=== PATIENT | female | born 1965 | race African-American/Black ===

== ENCOUNTER 2017-12-10 10:58 | Emergency (ER) | payer MEDICAID ==
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
--- NOTE | 2017-12-10 11:36 | CPEKG ---
Test Reason : OPEN Blood Pressure : / mmHG Vent. Rate : 073 BPM Atrial Rate : 082 BPM P-R Int : 213 ms QRS Dur : 091 ms QT Int : 440 ms P-R-T Axes : 008 -15 151 degrees QTc Int : 485 ms Sinus rhythm Atrial premature complexes Prolonged NE interval LVH with secondary repolarization abnormality Confirmed by Alber Wheeler ([id number]) on 12/10/2017 11:35:50 AM Referred By: Confirmed By:Alber Wheeler
[2017-12-10 13:21] LABS: PLATELET COUNT 342 10^3/uL (150-400)
[2017-12-10 15:15] VITALS: BP 172/99
--- NOTE | 2017-12-10 16:52 | ASMTCMCOM ---
CM Note CM Note Notes: Patient presents to the ER today with c/o CP and back pain. Chart reviewed from recent IP discharge on 12/02/17. I met with patient to evaluate for resources and potential follow up/establishment with a PCP. When asked where patient is staying, she does not share. I asked her if she has been staying in [place]? At the long term? [place]? Patient states she is "staying around". Patient was evidently seen at [facility] yesterday but does not engage in discussing details of this. I encouraged patient to seek long term, primary care, and stability and attempted to evaluate for resource referrals but patient appears disinterested at this time Date Signed: 12/10/2017 04:51 PM Electronically Signed By:Germaine Coffman RN
== END 2017-12-10 15:15 | disposition home or self-care (01) ==
LOC: EDUNIT#
DX: R07.9 Chest pain, unspecified (principal); M54.5 Low back pain; Z59.0 Homelessness

== ENCOUNTER 2017-12-13 19:00 | Emergency (ER) | payer MEDICAID ==
--- NOTE | 2017-12-13 19:06 | EDPHY ---
H & P Time Seen by Provider: 12/13/17 19:06 - Medical/Surgical History Hx Asthma: No Hx Chronic Respiratory Disease: No Hx Diabetes: No Hx Cardiac Disease: Yes Hx Renal Disease: No Hx Cirrhosis: No Hx Alcoholism: No Hx HIV/AIDS: No Hx Splenectomy or Spleen Trauma: No Other PMH: HTN, SD, CVA, chronic chest and back pain - Social History Smoking Status: Heavy smoker Allergies/Adverse Reactions: Penicillins Allergy (Verified 12/01/17 19:57) Home Medications: Medication Instructions Recorded Apixaban [Eliquis] 5 mg PO BID 12/01/17 Aspirin [Aspirin 81mg (*)] 81 mg PO DAILY 12/01/17 Carisoprodol [SOMA] 350 mg PO DAILY PRN 12/01/17 Cyclobenzaprine [Flexeril 10 MG 10 mg PO BID PRN 12/01/17 (*)] HYDROmorphone HCL [Dilaudid 2 mg 2 mg PO Q3 PRN MDD 6 TABS 12/01/17 (*)] Nitroglycerin [Nitrostat] 0.4 mg SL Q5M PRN 12/01/17 Ondansetron [Ondansetron Odt] 8 mg PO ONCE PRN 12/01/17 morphINE IR [morphINE IR 15 mg (*)] 15 mg PO Q3 PRN MDD 6 TABLETS 12/01/17 Hydrochlorothiazide [HCTZ (*)] 25 mg PO DAILY #30 cap 12/02/17 Metoprolol Tartrate [Lopressor 50 50 mg PO BID #60 tab 12/02/17 mg (*)] Apixaban [Eliquis] 5 mg PO BID #14 tab 12/10/17 Medical Decision Making ED Course/Re-evaluation: CHIEF COMPLAINT: HISTORY OF PRESENT ILLNESS: must have 4 elements: Location, Quality, Severity , Duration, Timing, Context, Modifying Factors, Associated Signs and Symptoms REVIEW OF SYSTEMS: A 10 point review of systems was performed and is negative with the exception of the elements mentioned in the history of present illness. PHYSICAL EXAM: HR, BP, O2 Sat, RR. Temp noted General Appearance: Alert, well hydrated, appropriate, and non-toxic appearing. Head: Atraumatic without scalp tenderness or obvious injury Eyes: Pupils equal, round, reactive to light and accommodation, EOMI, no trauma , no injection. Ears: Clear bilaterally, no perforation, normal landmarks Nose: Atraumatic, no rhinorrhea, clear. Throat: There is no erythema or exudates, no lesions, normal tonsils, mucus membranes moist. Neck: Supple, 2+ carotid upstroke, nontender, no lymphadenopathy. Respiratory: No retractions, no distress, no wheezes, and no accessory muscle use. Lungs are clear to auscultation bilaterally. Cardiovascular: Regular rate and rhythm, no murmurs, rubs, or gallops. Bilateral carotid, radial, dorsalis pedis, and posterior tibial pulses intact. Good capillary refill all extremities. Gastrointestinal: Abdomen is soft, nontender, non-distended, no masses, no rebound, no guarding, no peritoneal signs. Musculoskeletal: Normal active ROM of all extremities, atraumatic. Neurological: Alert, appropriate, and interactive. The patient has normal DTRs and non-focal cranial nerves, motor, sensory, and cerebellar exam. Skin: No rashes, good turgor, no nodules on palpation. Past medical history: Past surgical history: Family history: Social history: DIAGNOSTICS/PROCEDURES/CRITICAL CARE TIME: DIFFERENTIAL DIAGNOSIS: MEDICAL DECISION MAKING: Departure - Departure Referrals: Patient,NotPresent [Primary Care Provider] - As per Instructions
== END 2017-12-13 19:07 | disposition left against medical advice (07) ==
LOC: EDUNIT#
DX: Z53.21 Procedure and treatment not carried out due to patient leaving prior to being seen by health care provider (principal)

== ENCOUNTER 2017-12-28 18:10 | Observation (INO) | payer MEDICAID ==
--- NOTE | 2017-12-28 20:27 | EDPHY ---
H & P Time Seen by Provider: 12/28/17 19:47 HPI/ROS: Chief complaint. Chest pain HPI. Patient is a 52-year-old female presents emergency department with continuous chest pain for 1 week. It is right-sided and described as pressure with radiation of right arm. Occasional shortness of breath. Symptoms are somewhat worse with walking. She has had a cough. Fever last week. She has pain in her legs and pain in her back and asks me multiple times during the initial discussion for Dilaudid for her back pain. She says that she has been taking her Eliquis as prescribed. Patient was seen in our department on December 01 for chest pain and then she left AMA from the hospital. Review of records shows that she left AMA from [facility] the day before. She was seen in the emergency department on December 10 for chest pain. She at that time said she had been at [facility] the previous night for chest pain. [facility] She has had aspirin today. ROS Constitutional. no fever/chills, no weakness Eyes. no problems with vision ENT. no sore throat, no nasal drainage Cardiovascular. Right-sided chest pain Respiratory. Shortness of breath and cough Abdominal. no abdominal pain, no nausea/vomiting, no diarrhea . no problems urinating MS. Chronic back pain. Leg pain. Skin. no rash Lymph. no swollen glands Neuro. no headache, no dizziness, no difficulty walking or with speech Past Medical/Surgical History: Past medical history [place] 2001, CVA, PE on Eliquis, hypertension, chronic back pain Social History: Single, daily smoker, no alcohol Smoking Status: Heavy smoker Physical Exam: General Appearance: Alert well-developed female mild distress vital signs are stable Eyes: Pupils equal and round no pallor or injection. ENT, Mouth: Mucous membranes are moist. Respiratory: There are no retractions, lungs are clear to auscultation. Cardiovascular: Regular rate and rhythm. Gastrointestinal: Abdomen is soft and nontender, no masses, bowel sounds normal. Neurological: Awake and alert, sensory and motor exams grossly normal. Skin: Warm and dry, no rashes. Musculoskeletal: Neck is supple nontender. Extremities symmetrical, full range of motion. Psychiatric: Patient is oriented X 3, there is no agitation. Constitutional: Initial Vital Signs Temperature (C) 36.7 C 12/28/17 18:28 Heart Rate 99 09/10/18 18:28 Respiratory Rate 18 12/28/17 18:28 Blood Pressure 102/82 H 12/28/17 18:28 O2 Sat (%) 96 12/28/17 18:28 O2 Delivery Mode Room Air Allergies/Adverse Reactions: Penicillins Allergy (Verified 12/28/17 18:27) Home Medications: Medication Instructions Recorded Apixaban [Eliquis] 5 mg PO BID 12/01/17 Aspirin [Aspirin 81mg (*)] 81 mg PO DAILY 12/01/17 Carisoprodol [SOMA] 350 mg PO DAILY PRN 12/01/17 Cyclobenzaprine [Flexeril 10 MG 10 mg PO BID PRN 12/01/17 (*)] HYDROmorphone HCL [Dilaudid 2 mg 2 mg PO Q3 PRN MDD 6 TABS 12/01/17 (*)] Nitroglycerin [Nitrostat] 0.4 mg SL Q5M PRN 12/01/17 Ondansetron [Ondansetron Odt] 8 mg PO ONCE PRN 12/01/17 morphINE IR [morphINE IR 15 mg (*)] 15 mg PO Q3 PRN MDD 6 TABLETS 12/01/17 Hydrochlorothiazide [HCTZ (*)] 25 mg PO DAILY #30 cap 12/02/17 Metoprolol Tartrate [Lopressor 50 50 mg PO BID #60 tab 12/02/17 mg (*)] Apixaban [Eliquis] 5 mg PO BID #14 tab 12/10/17 Medical Decision Making - Diagnostics EKG Interpretation: EKG interpreted by me shows sinus tachycardia. Normal interval. Left axis deviation. LVH. No significant ST elevation or depression. Lateral T-wave changes that may be repolarization. Also T-wave inversion in leads 1 and aVL. Her EKG is unchanged from previous EKG 12/01/2017 Imaging Results: Imaging Impressions Chest X-Ray 12/28/17 20:29 Impression: Mild bronchitis. Other chronic findings, as above. Chest x-ray interpreted by me shows LVH in possibly mild bronchitis. No pneumonia Procedures: IV normal saline, monitor ED Course/Re-evaluation: Re-evaluation at 9:50 p.m.--patient is sleepy but arousable. She tells me she continues to have chest discomfort She and I discussed labs and treatment plan and recommendation for admission. She expresses understanding and agreement I consulted discussed case Dr. Mckenzie, hospitalist who agrees to the admission Differential Diagnosis: Patient's heart score shows a 1 for moderately suspicious history, a 1 for nonspecific repolarization disturbance, a 1 for age and a 1 for risk factors as she has had previous [place]. Total heart risk score is 4. Her initial troponin is normal so she gets a 0. - Data Points Laboratory Results: Laboratory Results 12/28/17 20:28 12/28/17 20:28 12/28/17 12/28/17 12/28/17 20:31 20:28 20:28 WBC RBC Hgb Hct MCV MCH MCHC RDW Plt Count MPV Neut % (Auto) Lymph % (Auto) [place] % (Auto) Eos % (Auto) Baso % (Auto) Nucleat RBC Rel Count Absolute Neuts (auto) Absolute Lymphs (auto) Absolute Monos (auto) Absolute Eos (auto) Absolute Basos (auto) Absolute Nucleated RBC Immature Gran % Immature Gran # PT 13.6 SEC SEC (12.0-15.0) INR 1.02 (0.83-1.16) APTT 22.0 SEC L SEC (23.0-38.0) D-Dimer 0.49 ug/mLFEU ug/mLFEU (0.00-0.50) Sodium 137 mEq/L mEq/L (135-145) Potassium 4.1 mEq/L mEq/L (3.3-5.0) Chloride 105 mEq/L mEq/L (97-110) Carbon Dioxide 26 mEq/l mEq/l (22-31) Anion Gap 6 mEq/L L mEq/L (8-16) BUN 14 mg/dL mg/dL (7-23) Creatinine 0.8 mg/dL mg/dL (0.6-1.0) Estimated GFR > 60 Glucose 99 mg/dL mg/dL (70-100) Calcium 9.4 mg/dL mg/dL (8.5-10.4) POC Troponin I 0.03 ng/mL ng/mL (0.00-0.08) 12/28/17 20:28 WBC 6.85 10^3/uL 10^3/uL (3.80-9.50) RBC 4.23 10^6/uL 10^6/uL (4.18-5.33) Hgb 11.5 g/dL L g/dL (12.6-16.3) Hct 35.8 % L % (38.0-47.0) MCV 84.6 fL fL (81.5-99.8) MCH 27.2 pg L pg (27.9-34.1) MCHC 32.1 g/dL L g/dL (32.4-36.7) RDW 15.9 % H % (11.5-15.2) Plt Count 347 10^3/uL 10^3/uL (150-400) MPV 10.0 fL fL (8.7-11.7) Neut % (Auto) 63.0 % % (39.3-74.2) Lymph % (Auto) 25.4 % % (15.0-45.0) [place] % (Auto) 9.1 % % (4.5-13.0) Eos % (Auto) 1.8 % % (0.6-7.6) Baso % (Auto) 0.6 % % (0.3-1.7) Nucleat RBC Rel Count 0.0 % % (0.0-0.2) Absolute Neuts (auto) 4.32 10^3/uL 10^3/uL (1.70-6.50) Absolute Lymphs (auto) 1.74 10^3/uL 10^3/uL (1.00-3.00) Absolute Monos (auto) 0.62 10^3/uL 10^3/uL (0.30-0.80) Absolute Eos (auto) 0.12 10^3/uL 10^3/uL (0.03-0.40) Absolute Basos (auto) 0.04 10^3/uL 10^3/uL (0.02-0.10) Absolute Nucleated RBC 0.00 10^3/uL 10^3/uL (0-0.01) Immature Gran % 0.1 % % (0.0-1.1) Immature Gran # 0.01 10^3/uL 10^3/uL (0.00-0.10) PT INR APTT D-Dimer Sodium Potassium Chloride Carbon Dioxide Anion Gap BUN Creatinine Estimated GFR Glucose Calcium POC Troponin I Point of Care Test Results: Chemistry 12/28/17 20:31 POC Troponin I 0.03 ng/mL ng/mL (0.00-0.08) Departure - Departure Disposition: [facility] Acute Clinical Impression: Chest pain Qualifiers: Chest pain type: unspecified Qualified Code(s): R07.9 - Chest pain, unspecified Condition: Fair Referrals: NONE *PRIMARY CARE P,. [Primary Care Provider] - As per Instructions
[2017-12-28 20:55] LABS: PLATELET COUNT 347 10^3/uL (150-400)
[2017-12-28 21:01] LABS: INR 1.02 (0.83-1.16); PROTIME(PATIENT) 13.6 SEC (12.0-15.0)
[2017-12-28] MEDS ORDERED: ONDANSETRON 4 MG/2 ML VIAL IVP PRN (23:08)
[2017-12-28] MEDS ORDERED: ONDANSETRON DISINTEGRATING 4 MG TAB PO PRN (23:08)
[2017-12-28] MEDS ORDERED: ACETAMINOPHEN 325 MG TAB PO PRN (23:08)
--- NOTE | 2017-12-28 23:35 | CPEKG ---
Test Reason : OPEN Blood Pressure : / mmHG Vent. Rate : 101 BPM Atrial Rate : 102 BPM P-R Int : 187 ms QRS Dur : 094 ms QT Int : 382 ms P-R-T Axes : 032 -09 165 degrees QTc Int : 496 ms Sinus tachycardia Atrial premature complexes LVH with secondary repolarization abnormality Borderline prolonged QT interval Confirmed by Robbie Garcia ([id number]) on 12/28/2017 11:34:38 PM Referred By: Confirmed By:Robbie Garcia
[2017-12-29] MEDS ORDERED: NITROGLYCERIN 0.4 MG BTL SL PRN ×2 (00:10→11:34)
[2017-12-29] MEDS: IBUPROFEN 200 MG TAB PO PRN ×2 (00:29→09:53)
[2017-12-29] MEDS: ACETAMINOPHEN 500 MG TAB PO PRN ×2 (00:29→09:54)
--- NOTE | 2017-12-29 01:38 | PDGENHP ---
History and Physical - Chief Complaint Chest pain - History of Present Illness 52 yo F w/ hx of CAD, HTN, and PE presents with chest pain and back pain. Patient tells me she experienced mid-sternal chest pain today with radiation to her face, neck, and shoulder. This is typical pain for her, which she has been experiencing often over the last few weeks to months. In terms of her back pain , she has been having chronic lower back pain for a long time. She denies change in character or red flag symptoms. A review of her records reveals a very complicated history. Today's visit is the 4th hospital she has visited in the last week with the same complaints. She visited [facility] ED and was discharged. She then was admitted at [facility] and [facility] as well. She left AMA from both [place] and [facility]. She underwent a nuclear stress test at [place] but per their notes she left AMA in the middle of it. It is unclear if this was completed as the results are not available in [facility]. She has left AMA from [facility] in the past as well under similar circumstances. Her evaluation today is fairly unremarkable in that she has a stable ECG and negative troponin. Her BP is elevated currently but consistent with her prior values. She denies ongoing chest pain. When asked why she has visited so many hospitals, she tells me someone has stolen her ID and has committed identity theft against her. The presumption at the other facilities she has visited is opiate seeking behavior. This has been documented here as well in the past. During our conversation she did mention Dilaudid but she did not forcibly request it. She was also not upset when I told her I would not be giving her any opiates while here. She continues to refuse any additional stress testing or cardiac catheterizations. Case discussed with ED physician Dr. Garcia. Records reviewed in EMR and [facility]. History Information - Allergies/Home Medication List Allergies/Adverse Reactions: Penicillins Allergy (Verified 12/28/17 18:27) Home Medications: Apixaban [Eliquis] 5 mg PO BID 12/01/17 [Last Taken 12/01/17] Aspirin [Aspirin 81mg (*)] 81 mg PO DAILY 12/01/17 [Last Taken 12/01/17] Carisoprodol [SOMA] 350 mg PO DAILY PRN 12/01/17 [Last Taken 11/29/17] Cyclobenzaprine [Flexeril 10 MG (*)] 10 mg PO BID PRN 12/01/17 [Last Taken 11/29] HYDROmorphone HCL [Dilaudid 2 mg (*)] 2 mg PO Q3 PRN MDD 6 TABS 12/01/17 [Last Taken 11/29/17] Nitroglycerin [Nitrostat] 0.4 mg SL Q5M PRN 12/01/17 [Last Taken 12/01/17] Ondansetron [Ondansetron Odt] 8 mg PO ONCE PRN 12/01/17 [Last Taken 11/29/17] morphINE IR [morphINE IR 15 mg (*)] 15 mg PO Q3 PRN MDD 6 TABLETS 12/01/17 [ Last Taken 11/29/17] I have personally reviewed and updated: family history, medical history - Past Medical History coronary artery disease, hypertension, pulmonary embolism - Surgical History Additional surgical history: Left foot surgery. L eye surgery - Family History Additional family history: Denies family history of heart disease - Social History Smoking Status: Heavy smoker Review of Systems Review of Systems: ROS: 10pt was reviewed & negative except for what was stated in HPI & below Physical Exam Physical Exam: Temp Pulse Resp BP Pulse Ox 37.3 C 88 15 180/115 H 95 12/29/17 00:00 12/29/17 00:00 12/29/17 00:00 12/29/17 00:00 12/29/17 00:00 Constitutional: no apparent distress, obese Eyes: PERRL, EOMI Ears, Nose, Mouth, Throat: moist mucous membranes, no oral mucosal ulcers Cardiovascular: regular rate and rhythym, no murmur, rub, or gallop Respiratory: no respiratory distress, clear to auscultation Gastrointestinal: normoactive bowel sounds, soft, non-tender abdomen Skin: warm, normal color Musculoskeletal: full muscle strength, no muscle tenderness Neurologic: AAOx3, CN II-XII Intact Psychiatric: interacting appropriately, not anxious Lab Data & Imaging Review 12/28/17 20:28 12/28/17 20:28 WBC 6.85 10^3/uL (3.80-9.50) 12/28/17 20:28 RBC 4.23 10^6/uL (4.18-5.33) 12/28/17 20: Hgb 11.5 g/dL (12.6-16.3) L 12/28/17 20: Hct 35.8 % (38.0-47.0) L 12/28/17 20: MCV 84.6 fL (81.5-99.8) 12/28/17 20: MCH 27.2 pg (27.9-34.1) L 12/28/17: MCHC 32.1 g/dL (32.4-36.7) L 12/28/17: RDW 15.9 % (11.5-15.2) H 12/28/17: Plt Count 347 10^3/uL (150-400) 12/28/17 MPV 10.0 fL (8.7-11.7) 12/28/17: Neut % (Auto) 63.0 % (39.3-74.2) 12/28/17: Lymph % (Auto) 25.4 % (15.0-45.0) 12/28/17: [place] % (Auto) 9.1 % (4.5-13.0) 12/28/17: Eos % (Auto) 1.8 % (0.6-7.6) 12/28/17: Baso % (Auto) 0.6 % (0.3-1.7) 12/28/17: Nucleat RBC Rel Count 0.0 % (0.0-0.2) 12/28/17: Absolute Neuts (auto) 4.32 10^3/uL (1.70-6.50) 12/28/17: Absolute Lymphs (auto) 1.74 10^3/uL (1.00-3.00) 12/28/17: Absolute Monos (auto) 0.62 10^3/uL (0.30-0.80) 12/28/17 20: Absolute Eos (auto) 0.12 10^3/uL (0.03-0.40) 12/28/17 20: Absolute Basos (auto) 0.04 10^3/uL (0.02-0.10) 12/28/17 20: Absolute Nucleated RBC 0.00 10^3/uL (0-0.01) 12/28/17 20: Immature Gran % 0.1 % (0.0-1.1) 12/28/17 20: Immature Gran # 0.01 10^3/uL (0.00-0.10) 12/28/17 20: PT 13.6 SEC (12.0-15.0) 12/28/17 20: INR 1.02 (0.83-1.16) 12/28/17 20: APTT 22.0 SEC (23.0-38.0) L 12/28/17 20: D-Dimer 0.49 ug/mLFEU (0.00-0.50) 12/28/17 20: Sodium 137 mEq/L (135-145) 12/28/17 20: Potassium 4.1 mEq/L (3.3-5.0) 12/28/17 20: Chloride 105 mEq/L (97-110) 12/28/17 20: Carbon Dioxide 26 mEq/l (22-31) 12/28/17 20: Anion Gap 6 mEq/L (8-16) L 12/28/17 20: BUN 14 mg/dL (7-23) 12/28/17 20: Creatinine 0.8 mg/dL (0.6-1.0) 12/28/17 20: Estimated GFR > 60 12/28/17 20: Glucose 99 mg/dL (70-100) 12/28/17 20: Calcium 9.4 mg/dL (8.5-10.4) 12/28/17 20: POC Troponin I 0.03 ng/mL (0.00-0.08) 12/28/17 20:31 Imaging Review: Imaging Impressions Chest X-Ray 12/28/17 20:29 Impression: Mild bronchitis. Other chronic findings, as above. Visualized and Interpreted EKG results: Yes EKG Interpretation: Positive for: normal sinsus rhythm, T waves inversion ( Lateral leads) Assessment & Plan Assessment: 52 yo F w/ hx of CAD, HTN, and PE presents with chest pain. Plan: 1. Chest pain - While her symptoms do seem anginal in nature, patient is currently refusing further testing including stress test or cardiac catheterization. She underwent a nuclear perfusion study on 12/23 at [facility]. It is unclear if this was completed prior to her leaving [place]. Her work-up thus far is reassuring including ECG (personally interpreted) with stable, lateral TWI's and negative troponin. It is possible her elevated BP and LV strain are contributing to her chest discomfort. - Admit to PCU for observation - Monitor on telemetry, trend cardiac enzymes - Patient refusing further testing - Could attempt to obtain stress test results from [place] - Improved BP control and addition of CCB could be helpful conservative strategies for managing her angina 2. Hx CAD - She suffered an SC in 2001 but no stents were placed at that time. - Acute management as above - Continue home medications pending reconciliation 3. Hx PE - On apixaban as an outpatient 4. HTN - Poorly controlled with unclear compliance. It is likely that improved control of this will help her chest pain symptoms. - Continue home medications pending reconciliation, titrate as indicated 5. Chronic back pain - Denies red flag symptoms; MRI performed 12/25 at [facility] revealed only mild degenerative changes in the lumbar spine. - Pain control with APAP and NSAIDs - I discussed with patient that we will not be prescribing opiates 6. Homelessness - I believe this is driving her unusual behavior of visiting numerous hospitals essentially continuously. [facility] is the 4th hospital she has visited this week alone. - Case management consult placed Diet - Regular (since patient refuses further risk stratification) Code - Full Ppx - apixaban Dispo - Admit under observation status
[2017-12-29] MEDS ORDERED: hydrALAZINE 20 MG/ML VIAL IVP PRN (11:37)
[2017-12-29] MEDS ORDERED: ONDANSETRON DISINTEGRATING 4 MG TAB PO PRN (11:53)
[2017-12-29 13:35] LABS: PLATELET COUNT 315 10^3/uL (150-400)
[2017-12-29 14:24] VITALS: BP 165/123
--- NOTE | 2017-12-29 14:36 | ASMTCMCOM ---
CM Note CM Note Notes: 12/29/2017 Case Management Note Discussed pt during rounds. Admitted for c/o chest pain. Pt has history of frequent visits to local EDs including [facility] and leaving hospitals AMA. Recent stay at [facility] on 12/01 pt left AMA. Met w/pt and notified of appointment tomorrow 12/30/2017 at [facility] at [address] Marion Maria at [address] [place] [address]. Pt states a friend Toyin Washington is picking her up between 6 - [address] [facility]. Pt refused info on local homeless senior living process. Pt has no plans to return to [place] at this time. Case Management d/c poc: independent with follow up as above. Date Signed: 12/29/2017 02:35 PM Electronically Signed By:Chanel Hermosillo RN
--- NOTE | 2017-12-29 16:55 | ASDISCHSUM ---
Discharge Information Plan Status:Homeless/Fpc Medically Cleared to Leave:12/29/2017 Discharge Date:12/29/2017 CM D/C Disposition:Home, Routine, Self-Care ADT D/C Disposition:Home, Routine, Self-Care Projected Discharge Date:12/29/2017 Transportation at D/C:Self Discharge Delay Reason: Follow-Up Date:12/29/2017 Discharge Slot: Final Diagnosis: Placement Information Patient Contact Information Contact Name:VINH Relationship:Daughter Address: Work Phone: City: [facility] Phone: State/Zip Code: Email: Financial Information Financial Class:Medicaid Primary Plan Desc:MEDICAID HEALTH FIRST PUFFER TENDER Primary Plan Number:[id number] Secondary Plan Desc: Secondary Plan Number: Assessment Information LACE LACE Length of stay for Answers: Less than 1 day current admission Acuity / Level of Answers: No Care: Did the patient have an inpatient admission? Comorbidities - select Answers: Cerebrovascular disease all that apply (CVA, TIA, aneurysms, vasc ular dementia) Coronary Artery Disease Opioid dependence / Chronic pain Previous myocardial infarction Other Notes: HTN; PE # of Emergency department Answers: 3-4 visits in the last 6 months Social determinants Answers: History of substance abuse (ETOH, street drugs, prescription drugs, etc.) Score: 15 Date Signed: 12/29/2017 04:54 PM Electronically Signed By:Chanel Hermosillo RN [facility] CM Progress Note CM Note CM Note Notes: 12/29/2017 Case Management Note Discussed pt during rounds. Admitted for c/o chest pain. Pt has history of frequent visits to local EDs including [facility] and [facility] hospitals AMA. Recent stay at [facility] on 12/01 pt left AMA. Met w/pt and notified of appointment tomorrow 12/30/2017 at [facility] at [address] Marion Maria at [address] [place] [address]. Pt states a friend Toyin [place] [facility] Pt refused info on local homeless half-way process. Pt has no plans to return to [place] at this time. Case Management d/c poc: independent with follow up as above. Date Signed: 12/29/2017 02:35 PM Electronically Signed By:Chanel Hermosillo RN Intervention Information
[2017-12-29] MEDS ORDERED: APIXABAN 5 MG TAB PO SCH (17:00)
--- NOTE | 2017-12-29 18:45 | GDS ---
DISCHARGE DIAGNOSES: 1. Chest and back pain, subacute to chronic. 2. History of pulmonary embolus, on Eliquis. 3. Questionable narcotic-seeking behavior. 4. Morbid obesity. 5. Uncontrolled hypertension. 6. Tobacco dependence. HISTORY: The patient is a 52-year-old female, recently moved here from [place]. Since arrival to [place], she has had persistent chest pain and back pain. Review of [facility] reveals she has gone to many different hospitals in the area, and we are the fourth hospital she has visited in this last we ek. She went to [facility] Emergency Room and was discharged. She went to [facility], was admitted, and they ordered a stress test for her chest pain, but she left [place] in the middle of t he stress test. She comes to our hospital complaining of the same chest pain and back pain. An MRI of her back was done at one of these other facilities and was negative. Her troponin and EKGs are ne gative. She reports both oral Dilaudid and oral morphine as home medications. However, when we revi ewed her PDMP, she has never been prescribed these medications as an outpatient. These were not cont inued during this hospitalization. She refused repeat stress testing, and she said she would never w ant to pursue cardiac catheterization, even if it were positive. She requested to be DNR. Her hypertension was clearly uncontrolled. Her compliance is questionable. It may be contributing t o her chest pains. We made her an appointment for tomorrow morning at [facility] to establish g ood outpatient care and long-term hypertension management strategies. I think she plans to return to [place] within the next couple of weeks. DISCHARGE MEDICATIONS: Please see computerized record for full detailed list. There were no new med ications given at the time of hospital discharge. ADDITIONAL DISCHARGE INSTRUCTIONS: Follow up tomorrow morning at [facility] to establish primar y care as recommended. /[id number]/MODL
[2017-12-29] MEDS ORDERED: ASPIRIN 81 MG CHEWABLE TAB PO SCH (21:00)
[2017-12-29] MEDS ORDERED: METOPROLOL TARTRATE 50 MG TAB PO SCH (21:00)
[2017-12-30] MEDS ORDERED: MULTIVITAMINS 1 EACH TAB PO SCH (09:00)
[2017-12-30] MEDS ORDERED: HYDROCHLOROTHIAZIDE 12.5 MG CAP PO SCH (09:00)
== END 2017-12-29 17:14 | disposition home or self-care (01) ==
LOC: F2W 23:37
PROVIDERS: ADMIT Student in an Organized Health Care Education/Training Program; ATTEND Internal Medicine
DX: R07.9 Chest pain, unspecified (principal); M54.9 Dorsalgia, unspecified; F17.200 Nicotine dependence, unspecified, uncomplicated; E66.01 Morbid (severe) obesity due to excess calories; Z68.41 Body mass index [BMI] 40.0-44.9, adult; I10 Essential (primary) hypertension; I25.2 Old myocardial infarction; G89.29 Other chronic pain; I25.10 Atherosclerotic heart disease of native coronary artery without angina pectoris; Z79.01 Long term (current) use of anticoagulants; Z86.711 Personal history of pulmonary embolism; Z86.73 Personal history of transient ischemic attack (TIA), and cerebral infarction without residual deficits; Z59.0 Homelessness; Z88.0 Allergy status to penicillin; Z66 Do not resuscitate
CPT/HCPCS: 71045; 93005; 96374; 99285; G0378; 84484-PO; J0360

== ENCOUNTER 2017-12-31 16:46 | Emergency (ER) | payer MEDICAID ==
--- NOTE | 2017-12-31 18:11 | EDPHY ---
H & P Time Seen by Provider: 12/31/17 17:33 HPI/ROS: CHIEF COMPLAINT: Chest pain HISTORY OF PRESENT ILLNESS: 52-year-old female with history of pulmonary embolism on Eliquis presents with chest pain. Chest pain is moderate and constant, without alleviating or aggravating factors. No change with exertion and no associated symptoms. She was admitted to [facility] for chest pain. Evaluation was unremarkable. Elevated blood pressure noted during that admission and HTN medications were changed. REVIEW OF SYSTEMS: complete 10 point ROS reviewed and are negative except at noted in the HPI Past Medical/Surgical History: Pulmonary embolism Social History: homeless Recently moved to [place] Smoking Status: Heavy smoker Physical Exam: General Appearance: Alert, drowsy Eyes: Pupils equal and round, no conjunctival pallor ENT, Mouth: Mucous membranes moist Neck: Normal inspection Respiratory: Lungs are clear to auscultation anteriorly Cardiovascular: Regular rate and rhythm Gastrointestinal: Abdomen is soft and nontender Neurological: Drowsy, nonfocal exam Skin: Warm and dry Extremities: Normal inspection Psychiatric: Flat affect Constitutional: Initial Vital Signs Temperature (C) 36.4 C 12/31/17 16:52 Heart Rate 96 12/31/17 16:52 Respiratory Rate 17 12/31/17 16:52 Blood Pressure 183/116 H 12/31/17 16:52 O2 Sat (%) 95 12/31/17 16:52 O2 Delivery Mode Room Air Allergies/Adverse Reactions: Iodinated Contrast- Oral and IV Dye Allergy (Verified 01/02/18 10:51) contrast dye Allergy (Uncoded 12/31/17 16:47) Home Medications: Medication Instructions Recorded Aspirin [Aspirin 81mg (*)] 81 mg PO HS 12/01/17 Nitroglycerin [Nitrostat] 0.4 mg SL Q5M PRN 12/01/17 Ondansetron [Ondansetron Odt] 8 mg PO DAILY PRN 12/01/17 Hydrochlorothiazide [HCTZ (*)] 25 mg PO DAILY #30 cap 12/02/17 Metoprolol Tartrate [Lopressor 50 50 mg PO BID #60 tab 12/02/17 mg (*)] Apixaban [Eliquis] 5 mg PO BID #30 tab 12/29/17 Herbals/Supplements -Info Only 1 ea PO DAILY 12/29/17 Multivitamins W-Iron [-Merari 1 ml PO DAILY 12/29/17 Iron (*)] Dilaudid 12/31/17 Medical Decision Making - Diagnostics EKG Interpretation: EKG interpreted by me reveals normal sinus rhythm, rate 93, LVH with secondary repolarization abnormalities. Similar to prior EKG. Interpretation: Abnormal EKG ED Course/Re-evaluation: 6:00 p.m.: Patient is too drowsy to participate in her evaluation. Does not appear to be having pain. 6:45 p.m.: Blood pressure is persistently high. Discussed with patient, not taking her usual blood pressure medications. I reviewed her past medical chart and she is on metoprolol 50 mg twice daily and hydrochlorothiazide 25 mg daily. Has plenty of meds, encouraged to take meds as prescribed. Differential Diagnosis: Differential diagnosis includes though it is not limited to pneumonia, pneumothorax, pulmonary embolism, aortic dissection, pericarditis, acute coronary syndrome. - Data Points Laboratory Results: Laboratory Results 12/31/17 18:25 12/31/17 18:25 Medications Given: Discontinued Medications Hydrochlorothiazide (Hydrochlorothiazide) 25 mg PO EDNOW ONE Stop: 12/31/17 18:58 Last Admin: 12/31/17 19:12 Dose: 25 mg Metoprolol Tartrate (Lopressor) 50 mg PO EDNOW ONE Stop: 12/31/17 18:58 Last Admin: 12/31/17 19:12 Dose: 50 mg Point of Care Test Results: Chemistry 12/31/17 18:33 POC Troponin I 0.01 ng/mL ng/mL (0.00-0.08) Departure - Departure Disposition: Home, Routine, Self-Care Clinical Impression: Chest pain Qualifiers: Chest pain type: other chest pain Qualified Code(s): R07.89 - Other chest pain Condition: Good Instructions: Chest Pain (ED) Additional Instructions: Based upon the testing done in the Emergency Department today we see no evidence of a heart attack. Follow-up with your physician in 1-2 days. Please return to the Emergency Department immediately for any recurrent chest pain, difficulty breathing or other concerns. Referrals: Leif Fernando MD [Medical Doctor] - As per Instructions
[2017-12-31 18:50] LABS: PLATELET COUNT 361 10^3/uL (150-400)
[2017-12-31] MEDS ORDERED: HYDROCHLOROTHIAZIDE 25 MG TAB PO ONE (18:57)
[2017-12-31] MEDS ORDERED: METOPROLOL TARTRATE 50 MG TAB PO ONE (18:57)
--- NOTE | 2017-12-31 19:28 | CPEKG ---
Test Reason : OPEN Blood Pressure : / mmHG Vent. Rate : 093 BPM Atrial Rate : 093 BPM P-R Int : 198 ms QRS Dur : 092 ms QT Int : 391 ms P-R-T Axes : 062 -14 162 degrees QTc Int : 487 ms Sinus rhythm Atrial premature complex Borderline prolonged MS interval LVH with secondary repolarization abnormality Borderline prolonged QT interval Confirmed by Mar Diaz ([id number]) on 12/31/2017 7:27:59 PM Referred By: Confirmed By:Mar Diaz
[2017-12-31 19:59] VITALS: BP 179/114
== END 2017-12-31 19:58 | disposition home or self-care (01) ==
LOC: EDUNIT# → EDBD
DX: R07.9 Chest pain, unspecified (principal); Z79.01 Long term (current) use of anticoagulants; Z86.711 Personal history of pulmonary embolism; Z72.0 Tobacco use
CPT/HCPCS: 84484-PO

== ENCOUNTER 2018-01-02 10:45 | Emergency (ER) | payer MEDICAID ==
--- NOTE | 2018-01-02 10:40 | EDPHY ---
H & P Time Seen by Provider: 01/02/18 10:48 Constitutional: Initial Vital Signs Temperature (C) 36.7 C 01/02/18 10:52 Heart Rate 92 01/02/18 10:52 Respiratory Rate 18 01/02/18 10:52 Blood Pressure 170/120 H 01/02/18 10:52 O2 Sat (%) 99 01/02/18 10:52 O2 Delivery Mode Room Air Allergies/Adverse Reactions: Iodinated Contrast- Oral and IV Dye Allergy (Verified 01/02/18 10:51) contrast dye Allergy (Uncoded 12/31/17 16:47) Home Medications: Medication Instructions Recorded Aspirin [Aspirin 81mg (*)] 81 mg PO HS 12/01/17 Nitroglycerin [Nitrostat] 0.4 mg SL Q5M PRN 12/01/17 Ondansetron [Ondansetron Odt] 8 mg PO DAILY PRN 12/01/17 Hydrochlorothiazide [HCTZ (*)] 25 mg PO DAILY #30 cap 12/02/17 Metoprolol Tartrate [Lopressor 50 50 mg PO BID #60 tab 12/02/17 mg (*)] Apixaban [Eliquis] 5 mg PO BID #30 tab 12/29/17 Herbals/Supplements -Info Only 1 ea PO DAILY 12/29/17 Multivitamins W-Iron [-Merari 1 ml PO DAILY 12/29/17 Iron (*)] Dilaudid 12/31/17 Medical Decision Making - Diagnostics Imaging Results: Imaging Impressions Abdomen Ultrasound 01/02/18 10:51 Impression: 1. No cholelithiasis or biliary ductal dilation. 2. Diffuse heterogeneous echotexture of the liver suggestive of hepatic steatosis without focal abnormality. Findings discussed with Rashard Khan MD at 12:08 hour, 01/02/2018. Imaging: Discussed imaging studies w/ teacher physically impaired Radiologist, I viewed and interpreted images myself ED Course/Re-evaluation: CHIEF COMPLAINT: Chest pain HISTORY OF PRESENT ILLNESS: The patient is a 52 y/o female with a history of a CVA, CT, PE arriving via EMS complaining of chest pain today. She was seen in this emergency department 2 days ago for chest pain, but had a negative work up. The pain has not improved, so she called EMS again today. She denies headache, shortness of breath, urinary or bowel complaints, numbness, paresthesias, fever. REVIEW OF SYSTEMS: A comprehensive 10 system review of systems is otherwise negative aside from elements mentioned in the history of present illness and medical decision making. PHYSICAL EXAM: HR, BP, O2 Sat, RR. Temp noted General Appearance: Alert, well hydrated, appropriate, and non-toxic appearing. Head: Atraumatic without scalp tenderness or obvious injury Eyes: Pupils equal, round, reactive to light and accommodation, EOMI, no trauma , no injection. Ears: Clear bilaterally, no perforation, normal landmarks Nose: Atraumatic, no rhinorrhea, clear. Throat: There is no erythema or exudates, no lesions, normal tonsils, mucus membranes moist. Neck: Supple, 2+ carotid upstroke, nontender, no lymphadenopathy. Respiratory: No retractions, no distress, no wheezes, and no accessory muscle use. Lungs are clear to auscultation bilaterally. Cardiovascular: Regular rate and rhythm, no murmurs, rubs, or gallops. Bilateral carotid, radial, dorsalis pedis, and posterior tibial pulses intact. Good capillary refill all extremities. Gastrointestinal: LUQ tenderness to palpation. Abdomen is soft, non-distended, no masses, no rebound, no guarding, no peritoneal signs. Musculoskeletal: Normal active ROM of all extremities, atraumatic. Neurological: Alert, appropriate, and interactive. The patient has normal DTRs and non-focal cranial nerves, motor, sensory, and cerebellar exam. Skin: No rashes, good turgor, no nodules on palpation. Past medical history: CVA x 3, CT, PE Past surgical history: Denies Family history: Denies Social history: Transient, recently moved to [place], single DIAGNOSTICS/PROCEDURES/CRITICAL CARE TIME: Abdominal US: Negative EKG: The 12 lead EKG was interpreted by myself as sinus rhythm with a rate of 83 , atrial premature complexes. See hard copy and/or "tracemaster" electronic copy for interpretation. DIFFERENTIAL DIAGNOSIS: The differential diagnosis for the patient's abdominal pain included but was not limited to ovarian cyst, pelvic inflammatory disease, ovarian torsion, urinary tract infection, ectopic , cholecystitis, and appendicitis. MEDICAL DECISION MAKING: The patient is a 52 y/o female with a history of a CVA, CT, PE arriving via EMS complaining of chest pain today. She was seen in this emergency department 2 days ago and had a negative cardiac workup. On exam today the patient has LUQ tenderness, which suspect is due to her gallbladder. I do not appreciate any chest tenderness. Labs, EKG, and gallbladder US ordered; 1L IV NS, 30mg IV Toradol, 0.5mg IV Dilaudid, and 4mg IV Zofran administered. 1048: I met EMS upon arrival. 1106: I interpreted patient's EKG as sinus rhythm with a rate of 83. 1110: I spoke with the counseling case manager show states that this patient has been seen in this hospital numerous times and exhibits drug seeking behavior. We are unable to get labs on this patient as she has poor veins secondary to IV drug use. 1209: I spoke with Dr. Woodall, radiologist, there are no findings on patient's ultrasound. Patient is safe to be discharged. 1212: Reassessed patient and discussed normal imaging findings. Return precautions provided; patient is comfortable with this plan. - Data Points Medications Given: Discontinued Medications Hydromorphone HCl (Dilaudid) 0.5 mg IVP EDNOW ONE Stop: 01/02/18 10:51 Last Admin: 01/02/18 11:20 Dose: Not Given Sodium Chloride (Ns) 1,000 mls @ 0 mls/hr IV EDNOW ONE; Wide Open PRN Reason: Protocol Stop: 01/02/18 10:51 Last Admin: 01/02/18 11:20 Dose: Not Given Ketorolac Tromethamine (Toradol) 30 mg IVP EDNOW ONE Stop: 01/02/18 10:51 Last Admin: 01/02/18 11:20 Dose: Not Given Ondansetron HCl (Zofran) 4 mg IVP EDNOW ONE Stop: 01/02/18 10:51 Last Admin: 01/02/18 11:20 Dose: Not Given Departure - Departure Disposition: Home, Routine, Self-Care Clinical Impression: Abdominal pain Qualifiers: Abdominal location: left upper quadrant Qualified Code(s): R10.12 - Left upper quadrant pain Condition: Good Instructions: Abdominal Pain (ED) Additional Instructions: 1. Follow-up with your primary doctor within 72 hours. 2. Return to the Emergency Department for fever, chest pain, shortness of breath , increasing pain or other worsening of condition. Referrals: [facility],. [Clinic] - As per Instructions Report Scribed for: Rashard Khan Report Scribed by: Verona Black Date of Report: 01/02/18 Time of Report: 10:48
[2018-01-02] MEDS ORDERED: HYDROmorphONE/DILAUDID 2 MG/ML INJ IVP ONE (10:50)
[2018-01-02] MEDS ORDERED: KETOROLAC 30 MG/1 ML SDV IVP ONE (10:50)
[2018-01-02] MEDS ORDERED: NS 1,000 ML IV ONE (10:50)
[2018-01-02] MEDS ORDERED: ONDANSETRON 4 MG/2 ML VIAL IVP ONE (10:50)
[2018-01-02 12:17] VITALS: BP 184/107
--- NOTE | 2018-01-02 13:59 | ASMTCMCOM ---
CM Note CM Note Notes: Pt presented to the ED via EMS for chest pain. This is the patient's 6th ED visit in the past 30 days. Pt was also seen in the ED on 12/31/17 for chest pain, had a negative cardiac workup and was discharged. Pt was also recently discharged from [facility] on 12/29/17. Pt has a history of leaving hospitals AMA ([facility] on 12/02/17, [facility]) and for presenting with narcotic/drug seeking behavior. Pt has been offered various local resources in the past and continues to decline them today. Pt requesting a menu so she can order a meal. Pt states she is not homeless and has been staying with a friend. Pt has two large suitcases and various other belongings with her in the ED. Pt states she arrived to [place] from [place]. Pt states her goal is to get a train ticket back to [facility]. This CM informed pt that she may be able to get assistance with that but she would need to complete the Coordinate Entry process first; pt provided handout for CE and also other local resources such as community table meals, the food bank, [facility], etc. Pt was provided an appt w/[facility] on 12/30 when she was D/C'd on 12/29. Pt states she made it to the appt but will not be following up w/PC in the future and requests that she not be contacted by PC or scheduled another appt there. This CM attempted to further discuss pt's other options for primary care, if pt had a way of being contacted, if pt had any other family/friends for support, etc. but pt kept interrupting and wanted to leave. CM available for further assistance if needed. Date Signed: 01/02/2018 01:58 PM Electronically Signed By:Jordana Camacho RN
--- NOTE | 2018-01-02 15:00 | CPEKG ---
Test Reason : OPEN Blood Pressure : / mmHG Vent. Rate : 083 BPM Atrial Rate : 084 BPM P-R Int : 198 ms QRS Dur : 103 ms QT Int : 404 ms P-R-T Axes : 021 -11 175 degrees QTc Int : 475 ms Sinus rhythm Atrial premature complexes LVH with secondary repolarization abnormality Confirmed by Rashard Khan ([id number]) on 01/02/2018 2:59:39 PM Referred By: Confirmed By:Rashard Khan
== END 2018-01-02 12:19 | disposition home or self-care (01) ==
LOC: EDUNIT#
DX: R10.12 Left upper quadrant pain (principal)

== ENCOUNTER 2018-01-10 23:10 | Emergency (ER) | payer MEDICAID ==
[2018-01-10] MEDS ORDERED: LIDOCAINE 4%/MENTHOL 1% PATCH TD ONE (23:22)
--- NOTE | 2018-01-10 23:26 | EDPHY ---
H & P Smoking Status: Current some day smoker Time Seen by Provider: 01/10/18 23:21 HPI/ROS: CHIEF COMPLAINT: Chest pain and shortness of breath HISTORY OF PRESENT ILLNESS: Patient is a 52-year-old female with history of CA x1 2002 no stenting and CVA x3 brought here by EMS complaining of worsening cough and shortness of breath and chest pain as sharp with nausea and vomiting for the last week. She states she was seen at [facility] earlier this week and was admitted for evaluation of elevated blood pressure and chest pain. She received CTA, echo and stress test and was told to follow up with Cardiology. She does not have any a result with her today. Review of her chart external records shows that she was seen and seen [facility] and had a complete cardiac workup. I do not have these imaging available unknown initial evaluation. She did elope from [facility] for being officially discharged and then presented to [facility] the next day. His confirm that she was diagnosed with pulmonary embolism started on Eliquis. She states she is taking Eliquis. She has noticed no increased swelling in her legs or weight gain. REVIEW OF SYSTEMS: Constitutional: No fever, no chills. Eyes: No discharge. ENT: No sore throat. Cardiovascular: No chest pain, no palpitations. Respiratory: No cough, no shortness of breath. Gastrointestinal: No abdominal pain, no vomiting. Genitourinary: No hematuria. Musculoskeletal: No back pain. Skin: No rashes. Neurological: No headache. (Jose Boykin) Constitutional: Initial Vital Signs Temperature (C) 36.3 C 01/10/18 23:16 Heart Rate 94 01/10/18 23:16 Respiratory Rate 18 01/10/18 23:16 Blood Pressure 155/115 H 01/10/18 23:16 O2 Sat (%) 94 01/10/18 23:16 O2 Delivery Mode Room Air O2 (L/minute) 2 Allergies/Adverse Reactions: Iodinated Contrast- Oral and IV Dye Allergy (Verified 01/10/18 23:13) contrast dye Allergy (Uncoded 01/10/18 23:13) Home Medications: Medication Instructions Recorded Aspirin [Aspirin 81mg (*)] 81 mg PO HS 12/01/17 Nitroglycerin [Nitrostat] 0.4 mg SL Q5M PRN 12/01/17 Ondansetron [Ondansetron Odt] 8 mg PO DAILY PRN 12/01/17 Hydrochlorothiazide [HCTZ (*)] 25 mg PO DAILY #30 cap 12/02/17 Apixaban [Eliquis] 5 mg PO BID #30 tab 12/29/17 Herbals/Supplements -Info Only 1 ea PO DAILY 12/29/17 Multivitamins W-Iron [-Merari 1 ml PO DAILY 12/29/17 Iron (*)] Dilaudid 12/31/17 MORPHINE SULFATE 01/10/18 Medical Decision Making - Diagnostics Imaging Results: Imaging Impressions Chest X-Ray 01/10/18 23:21 Impression: 1. Stable cardiomegaly without andrae pulmonary edema. 2. Query arterial hypertension. 3. Suspect airways disease. 4. Tracheal deviation towards the right may be related to thyroid abnormality. ED Course/Re-evaluation: 52-year-old female here with cough and shortness of breath for the last week. I did review documentation from [facility] and [facility] both which showed the patient had extensive cardiopulmonary evaluation including stress test, echo and CTA. She was diagnosed with pulmonary embolism but then in fact left AMA but was also given cardiology follow-up. Here in the emergency room she is mildly hypertensive but shows no evidence of hypertensive crisis. Chest x-ray reveals no andrae pulmonary edema. EKG reveals sinus rhythm with no ST elevation or depression but she does have frequent PACs but no a arrhythmia. Troponin is 0.03 and negative for ACS patient will be discharged with follow-up to Cardiology. (Jose Boykin) PHYSICIAN DOCUMENTATION: The patient was evaluated and managed by the Physician Souvenir Assembler. My co- signature indicates that I have reviewed this chart and I agree with the findings and plan of care as documented. I am the secondary supervising physician. I was able to look up additional records for this patient and she did have a nuclear stress test performed without exercise component. Nuclear stress was relatively unremarkable. (Clari Castaneda) Differential Diagnosis: Pulmonary embolism, pulmonary edema, pneumonia, pneumothorax, ACS, arrhythmia ( Jose Boykin) - Data Points Laboratory Results: Laboratory Results 01/10/18 00:05 01/11/18 00:05 01/11/18 01/11/18 01/10/18 00:09 00:05 00:05 WBC RBC Hgb Hct MCV MCH MCHC RDW Plt Count APTT 26.3 SEC SEC (23.0-38.0) Turbidity Cancelled Sodium Cancelled Potassium Cancelled Chloride Cancelled Carbon Dioxide Cancelled Anion Gap Cancelled BUN Cancelled Creatinine Cancelled Estimated GFR Cancelled Glucose Cancelled Calcium Cancelled POC Troponin I 0.03 ng/mL ng/mL (0.00-0.08) NT-Pro-B Natriuret Pep 141 pg/mL H pg/mL (0-125) Specimen Hemolysis Cancelled 01/10/18 01/10/18 00:05 00:05 WBC 5.66 10^3/uL 10^3/uL (3.80-9.50) RBC 4.71 10^6/uL 10^6/uL (4.18-5.33) Hgb 12.6 g/dL g/dL (12.6-16.3) Hct 39.4 % % (38.0-47.0) MCV 83.7 fL fL (81.5-99.8) MCH 26.8 pg L pg (27.9-34.1) MCHC 32.0 g/dL L g/dL (32.4-36.7) RDW 15.1 % % (11.5-15.2) Plt Count 353 10^3/uL 10^3/uL (150-400) APTT Turbidity Sodium 141 mEq/L mEq/L (135-145) Potassium 5.2 mEq/L H mEq/L (3.3-5.0) Chloride 107 mEq/L mEq/L (97-110) Carbon Dioxide 24 mEq/l mEq/l (22-31) Anion Gap 10 mEq/L mEq/L (8-16) BUN 21 mg/dL mg/dL (7-23) Creatinine 0.7 mg/dL mg/dL (0.6-1.0) Estimated GFR > 60 Glucose 102 mg/dL H mg/dL (70-100) Calcium 9.8 mg/dL mg/dL (8.5-10.4) POC Troponin I NT-Pro-B Natriuret Pep REJ Specimen Hemolysis 186 Medications Given: Discontinued Medications Miscellaneous Medication (Icy Hot Lidocaine/Menthol 4%/1% Patch) 1 patch TD EDNOW ONE Stop: 01/10/18 23:25 Last Admin: 01/10/18 23:35 Dose: 1 patch Point of Care Test Results: Chemistry 01/11/18 00:09 POC Troponin I 0.03 ng/mL ng/mL (0.00-0.08) Departure - Departure Disposition: Home, Routine, Self-Care Clinical Impression: Cough, History of pulmonary embolus (PE) Condition: Good Instructions: Pulmonary Embolism (ED) Additional Instructions: Please follow up with Cardiology as discussed at [facility] when your discharge. Additionally need to be taking you're Eliquis daily as instructed for the pulmonary embolism. Is no evidence of heart attack or pneumonia at this time. Please return to the ER if he have worsening symptoms. Referrals: NONE *PRIMARY CARE P,. [Primary Care Provider] - As per Instructions [facility],. [Clinic] - As per Instructions
[2018-01-10] MEDS: LIDOCAINE 4%/MENTHOL 1% PATCH TD ONE (23:35)
[2018-01-11 01:02] VITALS: BP 155/100
--- NOTE | 2018-01-11 06:03 | CPEKG ---
Test Reason : OPEN Blood Pressure : / mmHG Vent. Rate : 089 BPM Atrial Rate : 090 BPM P-R Int : 202 ms QRS Dur : 097 ms QT Int : 399 ms P-R-T Axes : 019 -20 158 degrees QTc Int : 486 ms Sinus rhythm Multiple premature complexes, vent & supraven Borderline prolonged PA interval LVH with secondary repolarization abnormality Borderline prolonged QT interval Confirmed by Clari Castaneda ([id number]) on 01/11/2018 6:03:08 AM Referred By: Confirmed By:Clari Castaneda
[2018-01-11] MEDS ORDERED: PATCH REMOVAL 1 EA PATCH TD SCH (21:00)
== END 2018-01-11 01:02 | disposition home or self-care (01) ==
LOC: EDUNIT#
DX: R07.9 Chest pain, unspecified (principal); R06.02 Shortness of breath; R05 Cough; Z86.711 Personal history of pulmonary embolism; I25.10 Atherosclerotic heart disease of native coronary artery without angina pectoris; I25.2 Old myocardial infarction; Z95.5 Presence of coronary angioplasty implant and graft; Z86.73 Personal history of transient ischemic attack (TIA), and cerebral infarction without residual deficits
CPT/HCPCS: 84484-PO

== ENCOUNTER 2018-07-24 15:12 | Emergency (ER) | payer MEDICAID ==
[2018-07-24] MEDS ORDERED: ASPIRIN 81 MG CHEWABLE TAB PO ONE (15:15)
--- NOTE | 2018-07-24 16:50 | EDPHY ---
H & P Time Seen by Provider: 07/24/18 15:15 HPI/ROS: HPI Chest pains. 52-year-old female by ambulance. She was picked up on the street. She has a long history with our emergency department and hospital. She states that since yesterday she has had intermittent chest pains described as sharp and stabbing mid chest. She states that she has taken nitroglycerin as well as aspirin and her prescribe Dilaudid with no relief. She initially told me that she is traveling from [place] and got off a train in [place] 2 nights ago. She tells me that she is planning on traveling on to [facility]. However, on review of her medical record has been a long-time resident of [place]. She is homeless. She has been seen in our emergency department multiple times in the past for similar complaints. She has been assessed by case management in the past. Extensive follow-up has been provided to her and she has been noncompliant. She often leaves the hospital or the emergency department against medical advice. On time of arrival she states that she is feeling better at this time reports having only having a low level of chest discomfort. ROS: Constitutional: No fever, no chills. No weakness. Eyes: No discharge. No changes in vision. ENT: No sore throat. No nasal congestion or rhinorrhea. Respiratory: No cough. No shortness of breath. Cardiac: As above, no palpitations. Gastrointestinal: No abdominal pain, no vomiting, no diarrhea. Genitourinary: No hematuria. No dysuria or increased frequency with urination. Musculoskeletal: No back pain. No neck pain. No myalgias or arthralgias. Skin: No rashes. Neurological: No headache. No focal weakness or altered sensation. Past medical history: Hypertension, coronary artery disease, chronic chest and back pain with narcotic pain medication dependence, CHF. Social history: Homeless. Denies smoking. Denies alcohol. Physical Exam: General Appearance: Alert, obese habitus, she is not in distress. This patient is responding to questions appropriately and in full sentences. This patient appears well-hydrated and well-nourished. Eyes: Pupils equal and round no pallor or injection. No lid edema, erythema or injection. Respiratory: There are no retractions, lungs are clear to auscultation anteriorly with good air movement bilaterally. No tachypnea. Cardiovascular: Regular rate and rhythm. No murmur appreciated. Gastrointestinal: Abdomen is soft and nontender, no masses, bowel sounds normal. No focal tenderness at McBurney's point. No Nieves sign. Neurological: Motor sensory function is grossly intact. Cranial nerves are normal. Gait is normal. Skin: Warm and dry, no rashes. Musculoskeletal: Neck is supple and nontender. Extremities are symmetrical. Bilateral lower extremity symmetrical pitting edema. All joints range without pain or impingement. Psychiatric: No agitation. No depression. Database: EKG: EKG time is 3:28 p.m.; EKG shows a narrow complex normal sinus rhythm with a ventricular rate of 93. The MN Interval is borderline prolonged. The QRS, QT intervals are within normal limits. There are no ST-T wave changes indicative of ischemic or injury pattern. No evidence of right heart strain. Interpreted by me. This EKG is unchanged from previous EKGs. EKG time is 5:22 p.m.; EKG shows a narrow complex normal sinus rhythm with a ventricular rate of 87. PACs noted. His EKG is unchanged from prior. There are no ST-T wave changes indicative of ischemic or injury pattern. No evidence of right heart strain. Interpreted by me. This EKG was obtained secondary to the nurse thinking that she saw an irregular rhythm and was concerned about atrial fibrillation. I believe that this irregularity is secondary to PACs. Imaging: Chest x-ray AP portable: Stable chest. Moderate cardiomegaly. No acute cardiopulmonary disease process noted. Interpreted by me. Procedures: Emergency department course: Triage vital signs reviewed and are normal. IV was placed. She was placed on a secured entrance monitor. The patient reports that she took 4 baby aspirin chewed prior to arrival. She currently is chest pain-free. EKG obtained and reviewed by myself as noted above. 4:50 p.m., the patient was re-evaluated, she is currently sleeping. Her belongings are in the room. She was easily arousable. She denies any chest pain or shortness of breath. I discussed observation admission but she does not want to do this. As noted case management has been involved with her care for some time. She has been notoriously noncompliant with her follow-up and outpatient management. She is asking to be discharged at this time. In my professional opinion she demonstrates capacitance to make decisions for herself. I discussed follow-up through [place] [facility] as well as [facility]. Return to emergency department precautions were reviewed with her. All of her questions were answered. She was discharged from the emergency department in good condition. Differential Diagnosis: The differential diagnosis on this patient includes but is not limited to chest pain with history of coronary artery disease. Acute coronary syndrome, myocardial infarction, pulmonary embolism, aortic dissection, pneumothorax, pericarditis, myocarditis unlikely. This represents a partial list of diagnoses considered. These considerations are based on history, physical exam , past history, reassessment and diagnostic testing. Smoking Status: Current some day smoker Constitutional: Initial Vital Signs Temperature (C) 36.1 C 07/24/18 15:32 Heart Rate 77 07/24/18 15:32 Respiratory Rate 18 07/24/18 15:32 Blood Pressure 121/95 H 07/24/18 15:32 O2 Sat (%) 95 07/24/18 15:32 O2 Delivery Mode Room Air Allergies/Adverse Reactions: Iodinated Contrast- Oral and IV Dye Allergy (Verified 07/24/18 15:31) contrast dye Allergy (Uncoded 01/10/18 23:13) Home Medications: Medication Instructions Recorded Aspirin [Aspirin 81mg (*)] 81 mg PO HS 12/01/17 Nitroglycerin [Nitrostat] 0.4 mg SL Q5M PRN 12/01/17 Ondansetron [Ondansetron Odt] 8 mg PO DAILY PRN 12/01/17 Hydrochlorothiazide [HCTZ (*)] 25 mg PO DAILY #30 cap 12/02/17 Apixaban [Eliquis] 5 mg PO BID #30 tab 12/29/17 Herbals/Supplements -Info Only 1 ea PO DAILY 12/29/17 Multivitamins W-Iron [-Merari 1 ml PO DAILY 12/29/17 Iron (*)] Dilaudid 12/31/17 MORPHINE SULFATE 01/10/18 TYLENOL #3 07/24/18 Medical Decision Making - Data Points Laboratory Results: Laboratory Results 07/24/18 17:25 07/24/18 15:52 Medications Given: Discontinued Medications Aspirin (Aspirin) 324 mg PO EDNOW ONE Stop: 07/24/18 15:16 Last Admin: 07/24/18 15:39 Dose: Not Given Point of Care Test Results: Chemistry 07/24/18 15:56 POC Troponin I 0.02 ng/mL ng/mL (0.00-0.08) Departure - Departure Disposition: Home, Routine, Self-Care Clinical Impression: Chest pain Condition: Good Instructions: Chest Pain (ED) Additional Instructions: Read and follow provided instructions. Follow-up with your primary care physician at [facility] on Thursday or Thursday of this week for re-evaluation as discussed. I have also notified our cardiology service regarding her visit to the emergency department and need to be seen in their outpatient clinic. Take your medication as prescribed. Return to the emergency department for worsening symptoms, return of chest pain , worsening shortness of breath or other serious concerns. Referrals: [facility],. [Clinic] - As per Instructions [facility] [Provider Group] - As per Instructions
[2018-07-24 17:40] LABS: PLATELET COUNT 417 10^3/uL (150-400)
[2018-07-24 17:51] VITALS: BP 164/116
--- NOTE | 2018-07-25 20:57 | CPEKG ---
Test Reason : OPEN Blood Pressure : / mmHG Vent. Rate : 093 BPM Atrial Rate : 094 BPM P-R Int : 210 ms QRS Dur : 100 ms QT Int : 386 ms P-R-T Axes : 069 -18 164 degrees QTc Int : 481 ms Sinus rhythm Atrial premature complexes Prolonged VA interval LVH with secondary repolarization abnormality Confirmed by Vince Blair ([id number]) on 07/25/2018 8:57:01 PM Referred By: Vince Blair Confirmed By:Vince Blair
--- NOTE | 2018-07-25 20:57 | CPEKG ---
Test Reason : OPEN Blood Pressure : / mmHG Vent. Rate : 087 BPM Atrial Rate : 089 BPM P-R Int : 210 ms QRS Dur : 099 ms QT Int : 396 ms P-R-T Axes : 051 -13 163 degrees QTc Int : 477 ms Sinus rhythm Multiple premature complexes, vent & supraven Prolonged WA interval LVH with secondary repolarization abnormality Confirmed by Vince Blair ([id number]) on 07/25/2018 8:57:02 PM Referred By: Vince Blair Confirmed By:Vince Blair
== END 2018-07-24 18:10 | disposition home or self-care (01) ==
LOC: EDBD → EDUNIT#
DX: R07.9 Chest pain, unspecified (principal); I10 Essential (primary) hypertension; I25.10 Atherosclerotic heart disease of native coronary artery without angina pectoris; I50.9 Heart failure, unspecified
CPT/HCPCS: 84484-ER

== ENCOUNTER 2018-07-30 20:03 | Emergency (ER) | payer MEDICAID ==
[2018-07-30] MEDS ORDERED: ACETAMINOPHEN 325 MG TAB PO ONE (20:17)
--- NOTE | 2018-07-30 20:21 | EDPHY ---
H & P Stated Complaint: mechanical fall, injury to right knee and right shoulder. Time Seen by Provider: 07/30/18 20:10 HPI/ROS: CHIEF COMPLAINT: Right knee pain, left shoulder pain HISTORY OF PRESENT ILLNESS: 52-year-old homeless female presents after a fall with right knee and left shoulder pain. She was pushing her luggage cart across the street, when she tripped and fell, landing directly onto her right knee. Now complains of moderate right knee and left shoulder pain. Denies other injuries. She did not hit her head; no headache or neck pain. REVIEW OF SYSTEMS: complete 10 point ROS negative except as noted in the HPI - Personal History Current Tetanus Diphtheria and Acellular Pertussis (TDAP): No - Medical/Surgical History Hx Asthma: No Hx Chronic Respiratory Disease: No Hx Diabetes: No Hx Cardiac Disease: Yes Hx Renal Disease: No Hx Cirrhosis: No Hx Alcoholism: No Hx HIV/AIDS: No Hx Splenectomy or Spleen Trauma: No Other PMH: HTN, [place], CVA, chronic chest and back pain. - Social History Smoking Status: Current some day smoker - Physical Exam Exam: General Appearance: Alert, does not appear in pain Head: Atraumatic Eyes: No conjunctival erythema, PERRLA, EOMI ENT, Mouth: no oral trauma, no bony tenderness Neck: Nontender, full range of motion without pain Respiratory: No chest wall tenderness, lungs clear bilaterally Cardiovascular: Regular rate and rhythm Abdomen: Abdomen is soft and nontender Skin: No lacerations, no abrasions Back: No midline T/L/S tenderness Extremities: Pelvis is stable and nontender; right lower extremity-normal inspection, no abrasion or ecchymosis, no pain with hip, knee, ankle range of motion, no localized tenderness; left shoulder-tenderness over the suprascapular area only, no tenderness over the humerus and no pain with passive range of motion of the left shoulder Neurological: A&Ox3, normal motor function, normal sensory exam, cranial nerves intact Psychiatric: Mood and affect normal Constitutional: Initial Vital Signs Temperature (C) 36.8 C 07/30/18 20:05 Heart Rate 102 H 07/30/18 20:05 Respiratory Rate 18 07/30/18 20:05 Blood Pressure 177/122 H 07/30/18 20:05 O2 Sat (%) 94 07/30/18 20:05 O2 Delivery Mode Room Air Allergies/Adverse Reactions: Iodinated Contrast- Oral and IV Dye Allergy (Verified 07/24/18 15:31) contrast dye Allergy (Uncoded 01/10/18 23:13) Home Medications: Medication Instructions Recorded Aspirin [Aspirin 81mg (*)] 81 mg PO HS 12/01/17 Nitroglycerin [Nitrostat] 0.4 mg SL Q5M PRN 12/01/17 Ondansetron [Ondansetron Odt] 8 mg PO DAILY PRN 12/01/17 Hydrochlorothiazide [HCTZ (*)] 25 mg PO DAILY #30 cap 12/02/17 Apixaban [Eliquis] 5 mg PO BID #30 tab 12/29/17 Herbals/Supplements -Info Only 1 ea PO DAILY 12/29/17 Multivitamins W-Iron [-Merari 1 ml PO DAILY 12/29/17 Iron (*)] Dilaudid 12/31/17 MORPHINE SULFATE 01/10/18 TYLENOL #3 07/24/18 Medical Decision Making - Diagnostics Imaging Results: Imaging Impressions Knee X-Ray 07/30/18 20:17 Impression: 1. No acute osseous abnormality seen right knee. 2. Mild degenerative osteophytes right knee joint. Shoulder X-Ray 07/30/18 20:17 Impression: 1. Mild cortical offset associated with the inferior scapula without fracture line delineated. Clinical correlation recommended. 2. No evidence of fracture or dislocation associated with the left shoulder. Imaging: I viewed and interpreted images myself ED Course/Re-evaluation: This patient presents after mechanical fall with knee and shoulder pain. Tylenol given. Xrays negative, d/w pt. Patient able to walk with a steady gait. - Data Points Medications Given: Discontinued Medications Acetaminophen (Tylenol) 650 mg PO EDNOW ONE Stop: 07/30/18 20:18 Last Admin: 07/30/18 20:23 Dose: 650 mg Departure - Departure Disposition: Home, Routine, Self-Care Clinical Impression: Multiple contusions Condition: Good Instructions: Contusion in Adults (ED) Additional Instructions: Ibuprofen 600 mg 3 times daily while the pain persists. Tylenol 650 mg every 4 hr as needed for pain. Referrals: [facility],. [Clinic] - As per Instructions
[2018-07-30 20:44] VITALS: BP 192/110
== END 2018-07-30 21:38 | disposition home or self-care (01) ==
LOC: EDUNIT#
DX: S80.01XA Contusion of right knee, initial encounter (principal); S49.92XA Unspecified injury of left shoulder and upper arm, initial encounter; M54.9 Dorsalgia, unspecified; R07.9 Chest pain, unspecified; G89.29 Other chronic pain; I10 Essential (primary) hypertension; W01.0XXA Fall on same level from slipping, tripping and stumbling without subsequent striking against object, initial encounter; Y92.410 Unspecified street and highway as the place of occurrence of the external cause; Z59.0 Homelessness